=== PATIENT | male | born 1945 | race Caucasian/White ===

== ENCOUNTER → 2020-12-27 | Outpatient (CLI) | payer MEDICARE ==
--- NOTE | 2020-12-27 15:39 | REP ---
INDICATION: CONTUSION BACK WALL THORAX. COMPARISON: None TECHNIQUE: Five views total FINDINGS: The left 8th and 9th ribs are fractured. Old healed fractures identified as well The accompanying frontal view the chest shows minimal left basilar opacities likely secondary to subsegmental atelectatic change secondary to is splinting due to pain IMPRESSION: Left 8th and 9th rib fractures and other findings as described above <Electronically signed by Jun Cam > 12/27/20 1535
== END ==
LOC: M WUC 15:11
PROVIDERS: ATTEND Physician Assistant
DX: S20.222A Contusion of left back wall of thorax, initial encounter (principal); S22.42XA Multiple fractures of ribs, left side, initial encounter for closed fracture; X58.XXXA Exposure to other specified factors, initial encounter; Y92.9 Unspecified place or not applicable; Y93.9 Activity, unspecified; Y99.9 Unspecified external cause status; R91.8 Other nonspecific abnormal finding of lung field

== ENCOUNTER → 2023-07-05 | Outpatient (CLI) | payer MEDICARE, MEDICAID ==
[~2023-07-05] MED LIST: METHACHOLINE KIT (6 VIAL.NEB PREMIX) INH ONE
== END ==
LOC: M CARPUL 08:49
PROVIDERS: ATTEND Internal Medicine Pulmonary Disease
DX: R06.00 Dyspnea, unspecified (principal)
CPT/HCPCS: 94070; 95070; J7674

== ENCOUNTER → 2024-09-19 | Outpatient (CLI) | payer MEDICARE, MEDICAID | LOC: M PLAIMG 12:41 | PROVIDERS: ATTEND Physician Assistant | DX: I77.810 Thoracic aortic ectasia (principal); I35.1 Nonrheumatic aortic (valve) insufficiency; I37.1 Nonrheumatic pulmonary valve insufficiency ==